=== PATIENT | female | born 1965 | race Hispanic/Latino ===

== ENCOUNTER 2016-12-04 15:17 | Emergency (ER) | payer OTHER ==
[2016-12-04 16:53] VITALS: BP 121/73
--- NOTE | 2016-12-04 17:16 | Emergency Department Report ---
Entered by BRIAN DIAZ, acting as scribe for TISH LIRA NP. Chief Complaint: Abdominal Pain Stated Complaint: ABD PAIN - HPI History of Present Illness: 51 y/o female, nontoxic, NAD, well developed, PMHx of diverticulitis and uterine fibroids ,c/o diffuse abdominal pain beginning today. Associated nausea but denies fever, chills, vomiting, chest pain, SOB, YOUNG, dizziness, blurry vision. - Exam Vital Signs: Vital Signs 12/04/16 16:49 Temperature 98.8 F Pulse Rate 103 H Respiratory 20 Rate Blood Pressure 121/73 O2 Sat by Pulse 97 Oximetry Physical Exam: GENERAL: The patient is a well-developed, well-nourished male in no apparent distress. Patient is alert and oriented x3. ABDOMEN: Soft, nontender, slightly distended. Positive bowel sounds. Positive diffuse abdominal pain. No epigastric tenderness. No hepatosplenomegaly was noted. No guarding or rebound tenderness, negative epigastric bruit. Negative psoas sign, negative santos sign, negative McBurneys sign MSE screening note: Focused history and physical exam performed. Due to findings the following was ordered: CBC, Lipase, Amylase, CMP, UA ED Disposition for MSE Condition: Stable Instructions: Abdominal Pain (ED) This documentation as recorded by the scribe,BRIAN DIAZ,accurately reflects the service I personally performed and the decisions made by ,TISH LIRA, ELIAS.
[2016-12-04 17:25] LABS: Hematocrit 42.4 % (30.3-42.9); Hemoglobin 14.3 gm/dl (10.1-14.3); Mean Corpuscular HGB Conc 34 % (30-34); Mean Corpuscular Hemoglobin 34 pg (28-32); Mean Corpuscular Volume 100 fl (79-97); Platelet Count 275 K/mm3 (140-440); Red Blood Count 4.26 M/mm3 (3.65-5.03); Red Cell Distribution Width 13.2 % (13.2-15.2); White Blood Count 15.1 K/mm3 (4.5-11.0)
[2016-12-04 17:42] LABS: Alanine Aminotransferase 18 units/L (7-56); Albumin 4.1 g/dL (3.9-5); Albumin/Globulin Ratio 1.2 %; Alkaline Phosphatase 100 units/L (35-129); Amylase 38 units/L (27-131); Anion Gap 19 mmol/L; Blood Urea Nitrogen 10 mg/dL (7-17); Calcium 9.5 mg/dL (8.4-10.2); Carbon Dioxide 24 mmol/L (22-30); Chloride 98.7 mmol/L (98-107); Glucose 126 mg/dL (65-100); Lipase 33 units/L (13-60); Potassium 4.3 mmol/L (3.6-5.0); Sodium 137 mmol/L (137-145); Total Protein 7.4 g/dL (6.3-8.2)
[2016-12-04 18:36] LABS: Basophils % (Manual) 0 % (0.0-1.8); Blastocytes % (Manual) 0 %; Eosinophils % (Manual) 0 % (0.0-4.3)
[2016-12-04 18:37] LABS: Diff Status Complete; Platelet Estimate Consistent w Auto; RBC Morphology Normal
[2016-12-04 19:43] LABS: Bilirubin,Urine NEG (Negative); Blood,Urine NEG (Negative); Ketones,Urine TR mg/dL (Negative); Leukocyte Esterase,Urine MOD (Negative); Mucus,Urine 1+ /HPF; Nitrite,Urine NEG (Negative); Protein,Urine <15 mg/dL mg/dL (Negative); Urobilinogen,Urine < 2.0 mg/dL (<2.0)
--- NOTE | 2016-12-10 20:41 | ED Elopement Review ---
ED Pt Elopement review - Results review Lab results: Laboratory Tests 12/04/16 12/04/16 12/04/16 17:11 17:11 18:46 WBC 15.1 H RBC 4.26 Hgb 14.3 Hct 42.4 MCV 100 H MCH 34 H MCHC 34 RDW 13.2 Plt Count 275 Add Manual Diff Complete Total Counted 100 Seg Neutrophils % Product Steward Seg Neuts % (Manual) 94.0 H Band Neutrophils % 3.0 Lymphocytes % (Manual) 1.0 L Reactive Lymphs % (Man) 0 Monocytes % (Manual) 2.0 Eosinophils % (Manual) 0 Basophils % (Manual) 0 Metamyelocytes % 0 Myelocytes % 0 Promyelocytes % 0 Blast Cells % 0 Nucleated RBC % Not Reportable Seg Neutrophils # Man 14.2 H Band Neutrophils # 0.5 Lymphocytes # (Manual) 0.2 L Abs React Lymphs (Man) 0.0 Monocytes # (Manual) 0.3 Eosinophils # (Manual) 0.0 Basophils # (Manual) 0.0 Metamyelocytes # 0.0 Myelocytes # 0.0 Promyelocytes # 0.0 Blast Cells # 0.0 WBC Morphology Not Reportable Hypersegmented Neuts Not Reportable Hyposegmented Neuts Not Reportable Hypogranular Neuts Not Reportable Smudge Cells Not Reportable Toxic Granulation Not Reportable Toxic Vacuolation Not Reportable Dohle Bodies Not Reportable Pelger-Huet Anomaly Not Reportable Katharina Rods Not Reportable Platelet Estimate Consistent w auto Clumped Platelets Not Reportable Plt Clumps, EDTA Not Reportable Large Platelets Not Reportable Giant Platelets Not Reportable Platelet Satelliting Not Reportable Plt Morphology Comment Not Reportable RBC Morphology Normal Dimorphic RBCs Not Reportable Polychromasia Not Reportable Hypochromasia Not Reportable Poikilocytosis Not Reportable Anisocytosis Not Reportable Microcytosis Not Reportable Macrocytosis Not Reportable Spherocytes Not Reportable Pappenheimer Bodies Not Reportable Sickle Cells Not Reportable Target Cells Not Reportable Tear Drop Cells Not Reportable Ovalocytes Not Reportable Helmet Cells Not Reportable Hare-Dawn Bodies Not Reportable Munde[place] Rings Not Reportable [place] Cells Not Reportable Bite Cells Not Reportable Crenated Cell Not Reportable Elliptocytes Not Reportable Acanthocytes (Spur) Not Reportable Rouleaux Not Reportable Hemoglobin C Crystals Not Reportable Schistocytes Not Reportable Malaria parasites Not Reportable Augusto Bodies Not Reportable Hem Pathologist Commnt No Sodium 137 Potassium 4.3 Chloride 98.7 Carbon Dioxide 24 Anion Gap 19 BUN 10 Creatinine 0.5 L Estimated GFR > 60 BUN/Creatinine Ratio 20.00 Glucose 126 H Calcium 9.5 Total Bilirubin 0.60 AST 17 ALT 18 Alkaline Phosphatase 100 Total Protein 7.4 Albumin 4.1 Albumin/Globulin Ratio 1.2 Amylase 38 Lipase 33 Urine Color Kate Urine Turbidity Clear Urine pH 5.0 Ur Specific Kelly 1.028 Urine Protein <15 mg/dl Urine Glucose (UA) Neg Urine Ketones Tr Urine Blood Neg Urine Nitrite Neg Urine Bilirubin Neg Urine Urobilinogen < 2.0 Ur Leukocyte Esterase Mod Urine WBC (Auto) 4.0 Urine RBC (Auto) 6.0 U Epithel Cells (Auto) 10.0 Urine Mucus 1+ - Call Back decision Pt Call Back Decision: Call pt to return to ED [facility] (abd pain, hx of diverticulitis, elevated WBC, tachycardia)
== END 2016-12-05 01:10 | disposition left against medical advice (07) ==
LOC: ED 15:17
DX: R10.84 Generalized abdominal pain (principal); R11.0 Nausea; Z53.21 Procedure and treatment not carried out due to patient leaving prior to being seen by health care provider
CPT/HCPCS: 36415; 80053; 81001; 82150; 83690; 85007; 85025